=== PATIENT | female | born 1980 | race Asian ===

== ENCOUNTER 2017-05-12 15:08 | Inpatient (IN) | payer SELFPAY ==
[~2017-05-12] VITALS: Ht 160 cm; Wt 55.8 kg
[2017-05-12 16:16] LABS: HEMATOCRIT. 33.2 % (36.0-48.0); HEMOGLOBIN. 11.3 g/dL (12.0-16.0); MEAN CORPUSCULAR HEMOGLOBIN 29.1 pg (28.0-32.0); MEAN CORPUSCULAR VOLUME 85.4 fL (81.0-99.0); MEAN PLATELET VOLUME 7.4 fl (7.4-10.4); PLATELET 178 x1000/uL (130-400); RED BLOOD CELL COUNT 3.89 mill/uL (4.2-5.4); RED CELL DISTRIBUTION WIDTH 13.4 % (11.6-14.6)
[2017-05-12] MEDS ORDERED: IBUPROFEN 600MG TABLET PO ONE (16:30)
[2017-05-12] MEDS ORDERED: TRAMADOL 50MG TABLET PO ONE (16:30)
[2017-05-12 16:33] LABS: CHLORIDE 104 mEq/L (98-107)
[2017-05-12 16:50] LABS: CARBON DIOXIDE 21 mEq/L (21-32)
[2017-05-12] MEDS ORDERED: SODIUM CHLORIDE 0.9% 1,000 ML IV ONE ×2 (17:00→18:30)
[2017-05-12 17:04] LABS: B-HCG QUANTITATIVE 19379 mIU/mL (<3)
[2017-05-12 17:42] LABS: PLATELET ESTIMATE NORMAL
[2017-05-12] MEDS ORDERED: ONDANSETRON HCL 4MG/2ML VIAL IV ONE (18:30)
[2017-05-12] MEDS ORDERED: MORPHINE SULFATE 4 MG/ML CPJ (NOT FOR IM USE) IV ONE (18:30)
[2017-05-12] MEDS ORDERED: MISOPROSTOL 200MCG TABLET PO ONE (18:30)
[2017-05-12] MEDS ORDERED: METHYLERGONOVINE MALEATE 0.2MG TABLET PO ONE (18:30)
[2017-05-12 18:54] LABS: HEMATOCRIT. 30.6 % (36.0-48.0); HEMOGLOBIN. 10.4 g/dL (12.0-16.0); MEAN CORPUSCULAR HEMOGLOBIN 29.6 pg (28.0-32.0); MEAN CORPUSCULAR VOLUME 86.8 fL (81.0-99.0); MEAN PLATELET VOLUME 7.8 fl (7.4-10.4); PLATELET 161 x1000/uL (130-400); RED BLOOD CELL COUNT 3.52 mill/uL (4.2-5.4); RED CELL DISTRIBUTION WIDTH 13.8 % (11.6-14.6)
[2017-05-12 19:38] LABS: PLATELET ESTIMATE NORMAL
[2017-05-12 20:34] LABS: CLARITY URINE CLOUDY (CLEAR); COLOR URINE RED (YELLOW); KETONES URINE 3+ (NEGATIVE); LEUKOCYTE ESTERASE URINE 2+ (NEGATIVE); NITRITE URINE POSITIVE (NEGATIVE); OCCULT BLOOD URINE 3+ (NEGATIVE); PROTEIN URINE 2+ (NEGATIVE); UROBILINOGEN URINE 0.2 E.U./dL (0.2-1.0)
[2017-05-12] MEDS ORDERED: POTASSIUM CHLORIDE 20MEQ TABLET SR PO ONE (21:00)
[2017-05-12 21:10] VITALS: BP 101/63
[2017-05-12 23:30] VITALS: BP 107/63
[2017-05-12] MEDS ORDERED: KETOROLAC 30MG/ML VIAL IV NR (23:45)
[2017-05-13] VITALS: BP 96/52
[2017-05-13] MEDS: METHYLERGONOVINE MALEATE 0.2MG TABLET PO SCH ×4 (00:46→12:00)
[2017-05-13] MEDS ORDERED: PNV1TABL76 PO (02:48)
[2017-05-13] MEDS ORDERED: KETOROLAC 30MG/ML VIAL IM PRN (03:00)
[2017-05-13] MEDS ORDERED: METRONIDAZOLE 500 MG PREMIX 100 ML IV NR (07:30)
[2017-05-13 08:00] VITALS: BP 93/58
[2017-05-13] MEDS ORDERED: FENTANYL CITRATE/PF 50MCG/ML 2ML VIAL ONE (09:12)
[2017-05-13] MEDS ORDERED: MIDAZOLAM HCL 2 MG/2 ML VIAL ONE (09:12)
[2017-05-13] MEDS ORDERED: LIDOCAINE HCL/PF 1% 10 MG/ML 5ML VIAL ONE (09:18)
[2017-05-13] MEDS ORDERED: PROPOFOL 200MG/20ML VIAL IV ONE (09:18)
[2017-05-13] MEDS ORDERED: DEXAMETHASONE 4MG/ML 1ML VIAL ONE (09:18)
[2017-05-13] MEDS ORDERED: METHYLERGONOVINE MALEATE 0.2 MG/ML ONE (09:26)
[2017-05-13] MEDS ORDERED: LABETALOL HCL 20MG/4ML CARPUJECT IV PRN (09:30)
[2017-05-13] MEDS ORDERED: ONDANSETRON HCL 4MG/2ML VIAL IV PRN (09:30)
[2017-05-13] MEDS ORDERED: HYDROMORPHONE HCL/PF 2MG/ML CPJ IV PRN (09:30)
[2017-05-13] MEDS ORDERED: MEPERIDINE HCL/PF 25MG/ML CPJ IV PRN (09:30)
[2017-05-13] MEDS ORDERED: DEXT 5%/0.45% NACL KCL 20MEQ/L 1,000 ML IV SCH (09:43)
[2017-05-13] MEDS ORDERED: HYDROMORPHONE HCL/PF 2MG/ML CPJ IV ONE (09:45)
[2017-05-13] MEDS ORDERED: ACETAMINOPHEN 325MG TABLET PO PRN (09:45)
[2017-05-13 12:00] VITALS: BP 88/52
[2017-05-13 12:20] VITALS: BP 88/52
== END 2017-05-13 13:15 | disposition home or self-care (01) | DRG 544 ==
LOC: ER 15:28 → 6EST 18:33 → ENRESERV 18:40
PROVIDERS: ADMIT Specialist; ATTEND Specialist
PROC: 10A07ZZ Abortion of Products of Conception, Via Natural or Artificial Opening (ICD-10-PCS; principal; 2017-05-13 09:00)
DX: O03.33 Metabolic disorder following incomplete spontaneous abortion (principal); E87.1 Hypo-osmolality and hyponatremia; D64.9 Anemia, unspecified; O03.39 Incomplete spontaneous abortion with other complications; E87.6 Hypokalemia; Z3A.16 16 weeks gestation of pregnancy
CPT/HCPCS: 36415; 76801; 80053; 81001; 84702; 85025; 86850; 86900; 88305; 96360; 96361; 99285; J1100; J2210; J2250; J2270; J2405; J2704; J3010; J3490; J7030; J7120